=== PATIENT | female | born 1965 | race Caucasian/White ===

== ENCOUNTER 2016-11-16 08:35 | Day surgery (SDC) | payer MEDICAID, OTHER ==
[~2016-11-16] VITALS: Ht 154.9 cm; Wt 69.2 kg
[2016-11-16 10:45] VITALS: Ht 154.9 cm; Wt 69.2 kg
[2016-11-16 10:50] VITALS: BP 133/69; PULSE 66; RESP 16
[2016-11-16] MEDS ORDERED: LOSARTAN PO (10:56)
[2016-11-16] MEDS ORDERED: ASPI81TA3 PO (10:56)
[2016-11-16] MEDS ORDERED: FENTAnyl 50 MCG/ML VIAL ONE (11:17)
[2016-11-16] MEDS ORDERED: MIDAZOLAM 1 MG/ML 2 ML INJ ONE ×2 (11:20)
[2016-11-16 11:26] VITALS: BP 120/74; RESP 18
[2016-11-16 11:56] VITALS: BP 118/66; RESP 18
--- NOTE | 2016-11-17 00:11 | GILP ---
DATE OF PROCEDURE: NAME OF PROCEDURE: Colonoscopy. SURGEON: Bandar Arce MD PREOPERATIVE DIAGNOSIS: Screening colonoscopy. POSTOPERATIVE DIAGNOSES: 1. Colonoscopy all the way to the cecum. 2. Internal hemorrhoids. 3. No colon neoplasm was identified. INDICATION FOR THE PROCEDURE: Ms. Tg Yarbrough is a 51-year-old female patient who was scheduled f or screening colonoscopy. The procedure and possible complications are well explained to the patient. The patient understood and consented to the procedure. DESCRIPTION OF PROCEDURE: Under the influence of fentanyl and Versed, the colonoscope was carefully introduced in the rectum. Under direct vision, it was advanced all the way to the cecum. FINDINGS: The patient had internal hemorrhoids. No colon neoplasm was identified. She tolerated the procedure very well and there was no complication from the procedure. At the end of the procedure, she was awake with stable vital signs and she was discharged home to the care of h er family. IMPRESSION: 1. Colonoscopy all the way to the cecum. 2. Internal hemorrhoids. 3. No colon neoplasm was identified. PLAN: Next screening colonoscopy in 10 years. Dictated By: BANDAR ARCE MD GD/NTS Conf#: [id number] DID#: [id number] CC: BANDAR ARCE MD;*EndCC*
== END 2016-11-16 16:34 | disposition home or self-care (01) ==
LOC: GIL 08:35
PROVIDERS: ATTEND Internal Medicine Gastroenterology
DX: Z12.11 Encounter for screening for malignant neoplasm of colon (principal); K64.8 Other hemorrhoids; I10 Essential (primary) hypertension
CPT/HCPCS: 45378; J2250; J3010; Z7610